=== PATIENT | female | born 1950 | race Caucasian/White ===

== ENCOUNTER 2022-05-25 11:35 | Emergency (ER) | payer OTHER, MEDICARE ==
[2022-05-25] MEDS ORDERED: Lidocaine 1% 5 ML VIAL INJECT ONE (11:51)
[2022-05-25] MEDS ORDERED: Triamcinolone Acetonide 40 MG/ML 1 ML SDV INJECT ONE (11:53)
[2022-05-25] MEDS ORDERED: Bupivacaine 0.5% 10 ML SDV INJECT ONE (11:53)
== END 2022-05-25 12:30 | disposition home or self-care (01) ==
LOC: LL.ED 11:35
DX: M75.42 Impingement syndrome of left shoulder (principal); Z88.0 Allergy status to penicillin; Z88.2 Allergy status to sulfonamides
CPT/HCPCS: 20600; 99283-25; J3301; J3490

== ENCOUNTER 2022-09-23 20:57 | Emergency (ER) | payer OTHER, MEDICARE ==
[2022-09-23] MEDS ORDERED: Lisinopril 10 MG Tab PO ONE (21:35)
== END 2022-09-23 23:00 | disposition home or self-care (01) ==
LOC: LL.ED 20:57
DX: S00.03XA Contusion of scalp, initial encounter (principal); Z88.0 Allergy status to penicillin; Z88.2 Allergy status to sulfonamides; Z79.899 Other long term (current) drug therapy; Y04.0XXA Assault by unarmed brawl or fight, initial encounter
CPT/HCPCS: 99284; A9270-GY